=== PATIENT | male | born 2000 | race Caucasian/White ===

== ENCOUNTER 2018-09-17 15:58 | Emergency (ER) | payer BC ==
[2018-09-17 16:40] VITALS: BP 127/69
--- NOTE | 2018-09-17 17:38 | ED ---
Respiratory - HPI Summary HPI Summary: 18-year-old patient presents with complaints of a persistent nonproductive cough. Patient states he started with some mild nasal congestion, sore throat, body aches and a occasional cough approximately one week ago. He was evaluated at this facility on 09/12/2018, had a negative flu test at that time, and was diagnosed with a viral URI. Patient states that cough is not improved since that time. Continues to have some occasional chills but denies any fever. Denies ear pain, dysphagia, chest pain, shortness of breath, wheezing, abdominal pain, nausea, vomiting, or diarrhea. - History of Current Complaint Chief Complaint: UCRespiratory Stated Complaint: COUGH Time Seen by Provider: 09/17/18 17:22 Hx Obtained From: Patient Pain Intensity: 0 - Allergy/Home Medications Allergies/Adverse Reactions: Allergies Allergy/AdvReac Type Severity Reaction Status Date / Time No Known Allergies Allergy Verified 09/17/18 16:40 Home Medications: Home Medications Cetirizine* [ZyrTEC 10 MG TAB*] 10 mg PO DAILY PRN 09/17/18 [History Confirmed 09/17/18] Guaifenesin/Dextromethorphan [Mucinex Dm ER 600-30 mg Tablet] 1 each PO BID PRN 09/17/18 [History Confirmed 09/17/18] PMH/Surg Hx/FS Hx/Imm Hx Previously Healthy: Yes - Denies significant PMH - Immunization History Immunizations Up to Date: Yes Infectious Disease History: No Infectious Disease History: Denies: Traveled Outside the [place] in Last 30 Days - Family History Known Family History: Positive: Non-Contributory - Social History Occupation: Student Lives: Dormitory/Roommates Alcohol Use: Occasionally Substance Use Type: Reports: None Smoking Status (MU): Never Smoked Tobacco Review of Systems Positive: Chills. Negative: Fever Negative: Drainage, Erythema Positive: Sore Throat, Nasal Discharge. Negative: Ear Ache Negative: Palpitations, Chest Pain Negative: Shortness Of Breath, Cough Negative: Abdominal Pain, Vomiting, Diarrhea, Nausea Genitourinary: Negative Musculoskeletal: Negative Skin: Negative Neurological: Negative All Other Systems Reviewed And Are Negative: No Physical Exam - Summary Physical Exam Summary: GENERAL APPEARANCE: Well developed, well nourished, alert and cooperative, and appears to be in no acute distress. EYES: Conjunctiva clear. No drainage. Vision is grossly intact. EARS: External auditory canals and tympanic membranes clear, hearing grossly intact. NOSE: Mild nasal congestion. THROAT: Mild pharyngeal erythema with post-nasal drip. No tonsilar inflammation , swelling, exudate, or lesions. Uvula midline. Oral cavity normal. Teeth and gingiva in good general condition. NECK: Neck supple, non-tender without lymphadenopathy. CARDIAC: Normal S1 and S2. No S3, S4 or murmurs. Rhythm is regular. There is no peripheral edema, cyanosis or pallor. Extremities are warm and well perfused. Capillary refill is less than 2 seconds. Peripheral pulses intact. LUNGS: Clear to auscultation without rales, rhonchi, wheezing or diminished breath sounds. Harsh, non-productive cough. ABDOMEN: Positive bowel sounds. Soft, nondistended, nontender. No guarding or rebound. No masses or hepatosplenomegally. MUSKULOSKELETAL: ROM intact to all extremities. No joint erythema or tenderness. Normal muscular development. Normal gait. SKIN: Skin normal color, texture and turgor with no lesions or eruptions. Triage Information Reviewed: Yes Vital Signs On Initial Exam: Initial Vitals Temp Pulse Resp BP Pulse Ox 99.1 F 96 15 127/69 99 09/17/18 16:32 09/17/18 16:32 09/17/18 16:32 09/17/18 16:32 09/17/18 16:32 Vital Signs Reviewed: Yes Diagnostics - Vital Signs Vital Signs Temp Pulse Resp BP Pulse Ox 09/17/18 16:32 99.1 F 96 15 127/69 99 - Laboratory Lab Statement: Any lab studies that have been ordered have been reviewed, and results considered in the medical decision making process. Disposition - Course Course Of Treatment: 18-year-old patient presents with complaints of a persistent nonproductive cough. Patient states he started with some mild nasal congestion, sore throat, body aches and a occasional cough approximately one week ago. He was evaluated at this facility on 09/12/2018, had a negative flu test at that time, and was diagnosed with a viral URI. Patient states that cough is not improved since that time. Continues to have some occasional chills but denies any fever. Denies ear pain, dysphagia, chest pain, shortness of breath, wheezing, abdominal pain, nausea, vomiting, or diarrhea. Afebrile. Vital signs stable. Exam reveals a young adult male in no acute distress with some mild nasal congestion, mild pharyngeal erythema without tonsillar swelling or exudate, no cervical lymphadenopathy, clear bilateral breath sounds, a harsh , dry, nonproductive cough, and otherwise unremarkable exam. Suspect that his symptoms are still viral in nature. Will treat him symptomatically with Tessalon Perles one capsule every 8 hours as needed for cough. 2 doses were dispensed home and a prescription sent to the pharmacy. I am also recommending that he use an [id number] decongestant as well as fluticasone nasal spray to help with the nasal congestion and postnasal drip. He is to return here or with his primary care provider in 5 days if symptoms do not improve. Anticipatory guidance and warning symptoms were reviewed with the patient. Verbalizes understanding and agrees with plan of care. - Differential Dx - Cardiopulmonary Differential Diagnoses - Cardiopulmonary: Bronchitis, Lower Resp Infection, Sinusitis - Diagnoses Provider Diagnoses: Acute bronchitis Discharge - Sign-Out/Discharge Documenting (check all that apply): Patient Departure All imaging exams completed and their final reports reviewed: No Studies - Discharge Plan Condition: Stable Disposition: HOME Prescriptions: Benzonatate CAP* [Tessalon 100 MG CAP*] 100 mg PO TID PRN #30 cap PRN Reason: Cough Patient Education Materials: Acute Bronchitis (ED) Referrals: No Primary Care Phys,NOPCP [Primary Care Provider] - Additional Instructions: Your history and exam are consistent with acute bronchitis which is most often caused by a viral infection. Viral infections do not respond to antibiotics and are limited to the treatment of symptoms. Viral infections typically run their course in 7-10 days. Be aware that the cough with bronchitis may persist for 2-3 weeks even if other symptoms have improved. Get plenty of rest. Drink plenty of fluids. Take over the counter acetaminophen (Tylenol) or ibuprofen (Advil, Motrin) according to directions as needed for pain or fever. Take Tessalon Perles 1 cap every 8 hours as needed for cough. I would recommend using an over the counter decongestant such as Sudafed to help with the nasal congestion and post-nasal drip. Use over the counter fluticasone (Flonase) nasal spray to help with the congestion as well. Return here or follow up with your primary care provider in 5 days if symptoms do not improve. Seek immediate medical attention in the emergency room if you have fever greater than 100.5 F despite taking acetaminophen or ibuprofen, have chest pain , difficulty breathing, or have any worsening of symptoms. - Billing Disposition and Condition Condition: STABLE Disposition: Home - Attestation Statements Provider Attestation: I was available for consult. This patient was seen by the LOR. The patient was not presented to , seen by or examined by ct -Kacey Waters MD
[2018-09-17] MEDS ORDERED: Benzonatate CAP* 100 MG PO ONE (17:49)
== END 2018-09-17 18:30 | disposition home or self-care (01) ==
LOC: UCCORT 15:58
DX: J20.9 Acute bronchitis, unspecified (principal)
CPT/HCPCS: 99212; A9270-GY; G0463